=== PATIENT | male | born 1955 | race Caucasian/White ===

== ENCOUNTER 2022-08-01 07:08 | Outpatient (CLI) | payer OTHER | END 2022-08-01 07:20 | disposition home or self-care (01) | LOC: RAD 07:08 | PROVIDERS: ATTEND Internal Medicine Gastroenterology | DX: R13.14 Dysphagia, pharyngoesophageal phase (principal) ==

== ENCOUNTER 2022-08-21 08:18 | Outpatient (CLI) | payer OTHER | END 2022-08-21 08:29 | disposition home or self-care (01) | LOC: TOM 08:18 | PROVIDERS: ATTEND Internal Medicine Gastroenterology | DX: C15.5 Malignant neoplasm of lower third of esophagus (principal); C15.4 Malignant neoplasm of middle third of esophagus | CPT/HCPCS: 71260; Q9965 ==